=== PATIENT | male | born 1945 | race Caucasian/White ===

== ENCOUNTER 2020-01-24 00:49 | Emergency (ER) | payer MEDICARE, SELFPAY ==
--- NOTE | 2020-01-24 00:51 | ED_ITS ---
HPI - Male Genitourinary General: Chief complaint: Urogenital-Male Stated complaint: UNABLE TO URINATE Time Seen by Provider: 01/24/20 00:51 Source: patient Mode of arrival: ambulatory Limitations: no limitations History of Present Illness: HPI Narrative: Patient is a very nice 74-year-old male who presents to ED today along with his for complaints of urinary retention. Patient tells me throughout the day he has noticed frequent urinary urgency but states over the course of the day it became harder and harder to urinate. He states he has not been able to urinate over the past 3 hours and is very uncomfortable. He has no history of BPH or prostate cancer. He is not complaining of flank pain or lower back pain. He denies dysuria, hematuria, color/odor changes to his urine. He does not have any testicular pain or swelling. He has not been running fevers. Abdominal pain is located to suprapubic region. No new medications. He did try some OTC Azo earlier today. MD Complaint: other (urinary retention) Onset (ago): hour(s) Duration: progressively worsening Associated symptoms: Deny dysuria, nausea or vomiting Review of Systems Const: Denies: fever(s) or chills GI: Reports: abdominal pain (suprapubic); Denies: nausea, vomiting, diarrhea or change in bowel habits : Reports: difficulty urinating and urinary urgency; Denies: flank pain, dysuria, urinary frequency, urinary hesitancy or nocturia Musc: Denies: back pain Physical Exam Const: COMMON NORMALS: average body habitus, patient oriented x3, no limitations, healthy appearing, alert and well nourished GENERAL APPEARANCE: cooperative and in distress (mildly uncomfortable ) HENMT: COMMON NORMALS: normocephalic and atraumatic HEAD & SCALP: normocephalic and atraumatic Resp: COMMON NORMALS: normal respiratory effort and clear to auscultation bilaterally AUSCULTATION: clear to auscultation bilaterally Cardio: COMMON NORMALS: regular rate and regular rhythm RATE: regular rate RHYTHM: regular rhythm GI: COMMON NORMALS: Soft to palpation, No hepatosplenomegaly present and no masses INSPECTION: Yes normal to inspection AUSCULTATION: Yes normoactive bowel sounds PALPATION: Yes Soft to palpation, Yes Tenderness to palpation present (GI) (suprapubic ), Yes No hepatosplenomegaly present and Yes Bladder palpation abnormal Details: distended and tender : COMMON NORMALS: Yes no CVA tenderness BLADDER/KIDNEY EXAM: Yes no CVA tenderness and Yes Bladder palpation abnormal Back/Pelvis: COMMON NORMALS: no CVA tenderness Neuro: COMMON NORMALS: patient oriented x3 SENSORIUM/ORIENTATION: Yes alert Skin: COMMON NORMALS: no rashes or lesions noted GENERAL SKIN EXAM: no rashes or lesions noted Course Reevaluation(s): Reevaluation #1: pt feels much better after Fleming placement; urine in bag appears red/orange-most likely related to use of his Azo; pt had not noticed any color changes to urine prior to using Azo Vital Signs: Vital signs: Vital Signs Temperature 98.8 F 01/24/20 00:55 Pulse Rate 88 01/24/20 02:21 Respiratory Rate 18 01/24/20 02:21 Blood Pressure 117/68 01/24/20 02:21 Pulse Oximetry 96 01/24/20 02:21 MDM - Male MDM Narrative: Medical decision making narrative: Will keep fleming in place and information placed to get patient set up to see Dr. Ramirez Lab Data: Labs: Lab Results 01/24/20 01/24/20 01/24/20 Range/Units 01:17 01:17 01:17 WBC 6.2 (4.0-10.0) 10^3/ uL RBC 4.33 (4.1-5.3) 10^6/u L Hgb 12.8 (11.7-16.6) g/dL Hct 39.1 L (42.0-52.0) % MCV 90.3 (80-94) fL MCH 29.6 (28.0-34.0) pg MCHC 32.7 (30.0-36.0) g/dL RDW 12.9 (12.1-15.1) % Plt Count 201 (130-400) 10^3/c mm MPV 10.6 H (7.4-10.4) fL Neut % (Auto) 66.8 % Lymph % (Auto) 22.8 % [place] % (Auto) 8.1 % Eos % (Auto) 1.5 % Baso % (Auto) 0.6 % Neut # (Auto) 4.13 (1.8-7.7) 10^3/u L Lymph # (Auto) 1.4 (0.8-4.8) 10^3/u L [place] # (Auto) 0.5 (0.2-0.9) 10^3/u L Eos # (Auto) 0.1 (0.0-0.8) 10^3/u L Baso # (Auto) 0.0 (0.0-0.1) 10^3/u L Nucleated RBC % (a uto) 0 % Nucleated RBCs # 0.0 /100WBC Sodium 134 L (136-145) mmol/L Potassium 3.6 (3.5-5.1) mmol/L Chloride 98 (98-107) mmol/L Carbon Dioxide 26 (22-29) mmol/L Anion Gap 13.6 (5-19) BUN 16 (8-23) mg/dL Creatinine 0.7 (0.7-1.2) mg/dL GFR Calculation Not Reportable Glucose 109 (65-115) mg/dL Calculated Osmolal ity 275 L (285-295) mOsm/k g Calcium 8.7 (8.5-10.5) mg/dL Total Bilirubin 0.3 (0.15-1.2) mg/dL AST 44 H (0-40) U/L ALT 15 (0-41) U/L Alkaline Phosphata se 50 (40-130) IU/L Total Protein 6.9 (6.6-8.7) g/dL Albumin 4.2 (3.5-5.2) g/dL Globulin 2.7 (1.3-4.6) g/dL Urine Color [place] (Yellow) Urine Appearance Clear (CLEAR) Urine pH TNP Ur Specific Gravit y TNP Urine Protein TNP Urine Glucose (UA) TNP Urine Ketones TNP Urine Blood TNP Urine Nitrate TNP Urine Bilirubin TNP Urine Urobilinogen TNP Ur Leukocyte Jaimie ase TNP Urine RBC 0-4 H (0-2) /hpf Urine WBC 0-4 H (0-5) /hpf Ur Squamous Epith Cells 0-4 H (0-5) Amorphous Sediment Not Reportable Urine Bacteria Trace (NONE) Discharge Plan Discharge Patient Disposition: Home Clinical Impression: Acute urinary retention Condition: Stable Discharge Orders: Discharge Order (Routine); Ordered 01/24/20 Ordered By: Felecia Estes Referrals: Daniel Ramirez MD [Physician] - Patient Instructions: Fleming Catheter Care, Urinary Retention in Men (ED), Fleming Catheter Placement and Care (ED), Urinary Leg Bag (GEN) Activity Restrictions/Additional Instructions: Return to the emergency department for abdominal pain, decreased urine output, Fleming not draining appropriately, fevers greater than 100.4, or any other concerns you may have. Case management should contact you shortly to set you up with your follow-up appointment with Dr. Ramirez. Discharge Date/Time: 01/24/20 02:22 Coding Level of Care Code ED [employer] for [employer] Fwd Exam Detailed
[2020-01-24 00:55] VITALS: BP 193/97; PULSE 90; RESP 16; TEMP 37.1; O2SAT 99; BMI 17.8
[2020-01-24 01:32] LABS: Basophils % 0.6 %; Eosinophils # 0.1 10^3/uL (0.0-0.8); Eosinophils % 1.5 %; Hematocrit 39.1 % (42.0-52.0); Hemoglobin 12.8 g/dL (11.7-16.6); Lymphocytes # 1.4 10^3/uL (0.8-4.8); Lymphocytes % 22.8 %; Mean Corpuscular HGB Conc 32.7 g/dL (30.0-36.0); Mean Corpuscular Hemoglobin 29.6 pg (28.0-34.0); Mean Corpuscular Volume 90.3 fL (80-94); Mean Platelet Volume 10.6 fL (7.4-10.4); Monocytes # 0.5 10^3/uL (0.2-0.9); Monocytes % 8.1 %; Neutrophils # 4.13 10^3/uL (1.8-7.7); Neutrophils % 66.8 %; Nucleated Red Blood Cells % 0 %; Platelet Count 201 10^3/cmm (130-400); Red Blood Count 4.33 10^6/uL (4.1-5.3); Red Cell Distribution Width 12.9 % (12.1-15.1); White Blood Count 6.2 10^3/uL (4.0-10.0)
[2020-01-24 01:46] LABS: Alanine Aminotransferase 15 U/L (0-41); Albumin Level 4.2 g/dL (3.5-5.2); Alkaline Phosphatase 50 IU/L (40-130); Anion Gap 13.6 (5-19); Aspartate Amino Transferase 44 U/L (0-40); Blood Urea Nitrogen 16 mg/dL (8-23); Calcium 8.7 mg/dL (8.5-10.5); Carbon Dioxide 26 mmol/L (22-29); Chloride 98 mmol/L (98-107); Globulin 2.7 g/dL (1.3-4.6); Glucose 109 mg/dL (65-115); Osmolality Calculated 275 mOsm/kg (285-295); Potassium 3.6 mmol/L (3.5-5.1); Sodium 134 mmol/L (136-145); Total Bilirubin 0.3 mg/dL (0.15-1.2); Total Protein 6.9 g/dL (6.6-8.7)
[2020-01-24 02:02] LABS: Urine Appearance Clear (CLEAR); Urine Color Orange (Yellow)
[2020-01-24 02:04] LABS: Add Urine Microscopic? YES; Bacteria Urine TRACE; RBC Urine 0-4 /hpf (0-2); Squamous Epithelial Cell Urine 0-4 (0-5); WBC Urine 0-4 /hpf (0-5)
[2020-01-24 02:21] VITALS: BP 117/68; PULSE 88; RESP 18; O2SAT 96
--- NOTE | 2020-01-24 09:15 | PC.SOCIAL ---
Referral received for Urology for urinary retention. Called place to Dr Ramirez office and spoke with Carolyn. She took down information and will call patient with appointment.
--- NOTE | 2020-02-01 10:17 | DCPLANNER ---
Patient has a follow up appointment scheduled for , February 02, [address] at 3:[address] Ramirez. Clinic will call patient with appointment information.
--- NOTE | 2020-02-16 12:59 | DCPLANNER ---
Patient had an appointment scheduled for 02.02.[address] Ramirez - patient did attend the appointment.
== END 2020-01-24 02:22 | disposition home or self-care (01) ==
PROVIDERS: Emergency Provider Physician Assistant
DX: R33.9 Retention of urine, unspecified (principal)
CPT/HCPCS: 12345; 36415; 51702; 80053; 81001; 81003; 85025; 99283

== ENCOUNTER 2020-02-08 14:12 | Outpatient (CLI) | payer MEDICARE, SELFPAY ==
--- NOTE | 2020-02-08 14:32 | US_ITS ---
WS: [id number] ULTRASOUND RENAL TECHNIQUE: Ultrasound examination of both kidneys. CLINICAL INFORMATION: URINARY RETENTION COMPARISON: None. FINDINGS: RIGHT: Right kidney is normal in size and appearance. Echogenicity: Normal. Cortical thickness: 1.3 cm; Normal. Hydronephrosis: None. Perinephric fluid: None. Right kidney measures: 11.2 cm x 6.3 cm x 3.8 cm. LEFT: Left kidney is normal in size and appearance. Echogenicity: Normal. Cortical thickness: 1.3 cm; Normal. Hydronephrosis: None. Perinephric fluid: None. Left kidney measures: 11.7 cm x 5.7 cm x 5.0 cm. Normal visualized aorta. Chronic diffuse bladder wall thickening. Prevoid bladder volume measures 45 cc. Postvoid residual measures 19 cc. US/US renal BI with bladder IMPRESSION: 1. No hydronephrosis in either kidney. 2. Post void residual measures 19 cc. Incomplete emptying. 3. Chronic diffuse bladder wall thickening can be seen with chronic cystitis o r bladder outlet obstruction. 4. Partially visualized enlarged prostate.Recommend correlation with PSA.
== END 2020-02-08 14:13 | disposition home or self-care (01) ==
LOC: RAD 14:18
PROVIDERS: PCP Urology; Visit Provider Family Medicine
DX: R33.9 Retention of urine, unspecified (principal); N40.0 Benign prostatic hyperplasia without lower urinary tract symptoms
CPT/HCPCS: 76770; 76857

== ENCOUNTER → 2020-02-14 14:08 | Outpatient (BNVA) | payer MEDICARE, SELFPAY | PROVIDERS: PCP Urology; Visit Provider Urology | DX: N41.0 Acute prostatitis (principal); R33.9 Retention of urine, unspecified | CPT/HCPCS: 81001 ==

== ENCOUNTER → 2020-02-21 16:01 | Outpatient (BNVA) | payer MEDICARE, SELFPAY | PROVIDERS: PCP Family Medicine; Visit Provider Urology | DX: N30.00 Acute cystitis without hematuria (principal); R33.9 Retention of urine, unspecified | CPT/HCPCS: 81001 ==

== ENCOUNTER → 2020-05-23 14:32 | Outpatient (BNVA) | payer MEDICARE, SELFPAY | PROVIDERS: PCP Family Medicine; Visit Provider Urology | DX: Z12.5 Encounter for screening for malignant neoplasm of prostate (principal); N30.00 Acute cystitis without hematuria; R33.9 Retention of urine, unspecified | CPT/HCPCS: G0103 ==

== ENCOUNTER → 2021-05-21 15:08 | Outpatient (BNVA) | payer MEDICARE, SELFPAY | PROVIDERS: PCP Family Medicine; Visit Provider Urology | DX: Z12.5 Encounter for screening for malignant neoplasm of prostate (principal); N30.00 Acute cystitis without hematuria; R33.9 Retention of urine, unspecified; N40.1 Benign prostatic hyperplasia with lower urinary tract symptoms; N20.9 Urinary calculus, unspecified | CPT/HCPCS: 81003; G0103 ==

== ENCOUNTER → 2022-05-20 15:21 | Outpatient (BNVA) | payer MEDICARE, SELFPAY | PROVIDERS: PCP Family Medicine; Visit Provider Urology | DX: N40.1 Benign prostatic hyperplasia with lower urinary tract symptoms (principal); Z12.5 Encounter for screening for malignant neoplasm of prostate; R33.9 Retention of urine, unspecified; N20.9 Urinary calculus, unspecified | CPT/HCPCS: 51798; 81003; 99213 ==

== ENCOUNTER → 2024-09-16 12:02 | Outpatient (BNVA) | payer MEDICARE, SELFPAY | PROVIDERS: PCP Family Medicine; Visit Provider Student in an Organized Health Care Education/Training Program | DX: S82.832A Other fracture of upper and lower end of left fibula, initial encounter for closed fracture (principal); X58.XXXA Exposure to other specified factors, initial encounter | CPT/HCPCS: 73610; 99204 ==

== ENCOUNTER → 2024-10-04 15:22 | Outpatient (BNVA) | payer MEDICARE, SELFPAY | PROVIDERS: PCP Family Medicine; Visit Provider Student in an Organized Health Care Education/Training Program | DX: S82.832A Other fracture of upper and lower end of left fibula, initial encounter for closed fracture (principal); X58.XXXA Exposure to other specified factors, initial encounter | CPT/HCPCS: 73610; 99213 ==

== ENCOUNTER → 2024-10-26 08:22 | Outpatient (BNVA) | payer MEDICARE, SELFPAY | PROVIDERS: PCP Family Medicine; Visit Provider Student in an Organized Health Care Education/Training Program | DX: S82.832A Other fracture of upper and lower end of left fibula, initial encounter for closed fracture (principal); W11.XXXA Fall on and from ladder, initial encounter | CPT/HCPCS: 73610 ==

== ENCOUNTER 2024-10-26 10:23 | Outpatient (CLI) | payer MEDICARE, SELFPAY | END 2024-10-26 10:24 | disposition home or self-care (01) | LOC: SPT 10:24 | PROVIDERS: PCP Family Medicine; Visit Provider Student in an Organized Health Care Education/Training Program | DX: Z46.89 Encounter for fitting and adjustment of other specified devices (principal); S82.832D Other fracture of upper and lower end of left fibula, subsequent encounter for closed fracture with routine healing; X58.XXXD Exposure to other specified factors, subsequent encounter | CPT/HCPCS: 97760; L1902 ==